=== PATIENT | male | born 1975 | race Hispanic/Latino ===

== ENCOUNTER 2016-05-16 17:48 | Emergency (ER) | payer OTHER ==
[2016-05-16 18:05] VITALS: BP 131/77; PULSE 90; RESP 16; TEMP 98.2; O2SAT 96
--- NOTE | 2016-05-16 18:54 | C.PDOC ---
History Of Present Illness Patient presents to the ED with complaints of occasional bright red blood per rectum with hard bowl movements for the last three weeks. Patient denies a history of hemorrhoids. Patient was in-patient from 05/09/16-05/13/16 for heroin detox and had no complaints at that time. Claims to be heroine free since discharge and living @ a [facility]. Time Seen by Provider: 05/16/16 18:40 Chief Complaint (Nursing): GI Problem History Per: Patient History/Exam Limitations: no limitations Onset/Duration Of Symptoms: Days Current Symptoms Are (Timing): Still Present Past Medical History Reviewed: Historical Data, Nursing Documentation, Vital Signs Vital Signs: Last Vital Signs Temp 98.2 F 05/16/16 18:00 Pulse 90 05/16/16 18:00 Resp 16 05/16/16 18:00 BP 131/77 05/16/16 18:00 Pulse Ox 96 05/16/16 21:11 - Medical History PMH: Depression, Hepatitis (hep c) - [facility] Procedures DETOXIFICATION SERVICES FOR SUBSTANCE ABUSE TREATMENT (07/05/15) GROUP COMPTOMETER OPERATOR FOR SUBSTANCE ABUSE TREATMENT, PSYCHOEDUCATION (07/05/15) GROUP COMPTOMETER OPERATOR FOR SUBSTANCE ABUSE, COGNITIVE BEHAVIORAL (05/09/16) INDIV COMPTOMETER OPERATOR FOR SUBSTANCE ABUSE, COGNITIVE BEHAVIORAL (05/09/16) INDIVIDUAL PSYCHOTHERAPY, SUPPORTIVE (05/09/16) Family History: States: Unknown Family Hx - Social History Hx Tobacco Use: No Hx Alcohol Use: Yes Hx Substance Use: No - Immunization History Hx Tetanus Toxoid Vaccination: No Hx Influenza Vaccination: No Hx Pneumococcal Vaccination: No Review Of Systems Constitutional: Negative for: Fever, Chills Gastrointestinal: Positive for: Rectal Pain. Negative for: Nausea, Vomiting Physical Exam - Physical Exam Appears: Non-toxic Skin: Warm, Dry Rectal: Heme Negative (guaiac negative), Hemorrhoids (non-bleeding hemorrhoids at 12 o'clock position) Extremity: Normal ROM, No Tenderness Neurological/Psych: Oriented x3 ED Course And Treatment O2 Sat by Pulse Oximetry: 96 Medical Decision Making Medical Decision Making: rectal exam with enlarged hemorroid @ 12 o'clock position, guaiac neg. occasional BRBPR a few drops w firm BM's most c/w ext hemorroids OK to f/u as opt for Colonscopy through our Clinic as needed. Disposition Doctor Will See Patient In The: Office Counseled Patient/Family Regarding: Studies Performed, Diagnosis - Disposition Referrals: [facility] [Outside] [facility] [Outside] Disposition: HOME/ ROUTINE Disposition Time: 18:53 Condition: GOOD Additional Instructions: follow-up in our outpatient Clinic to consider referral for Colonscopy. Instructions: Hemorrhoids (ED) - Clinical Impression Clinical Impression: Hemorrhoids
== END 2016-05-16 19:15 | disposition home or self-care (01) ==
LOC: C.ER 17:48
DX: K64.4 Residual hemorrhoidal skin tags (principal)

== ENCOUNTER 2016-11-16 11:58 | Inpatient (IN) | payer MEDICAID, OTHER ==
[2016-11-16 12:47] LABS: EOS # 0.2 K/uL (0.0-0.7); LYMPH # 1.6 K/uL (1.0-4.3); MEAN CELL VOLUME 94.3 fL (80.0-94.0); MONO # 0.5 K/uL (0.0-0.8); NRBC % 0.2 % (0.0-2.0)
[2016-11-16 12:54] LABS: BASO % 0.7 % (0.0-2.0); EOS % 3.4 % (0.0-4.0); HEMATOCRIT 45.7 % (35.0-51.0); LYMPH % 31.8 % (20.0-40.0); MEAN CORPUSCULAR HEMOGLOBIN 32.7 pg (27.0-31.0); MEAN CORPUSCULAR HGB CONC 34.7 g/dL (33.0-37.0); MEAN PLATELET VOLUME 9.8 fL (7.2-11.7); MONO % 9.3 % (0.0-10.0)
[2016-11-16 13:04] LABS: ALB/GLOB RATIO 1.3 (1.0-2.1); ALCOHOL SERUM < 10 mg/dl (0-10); ALKALINE PHOSPHATASE 93 U/L (38-126); ALT/SGPT 216 U/L (21-72); AST/SGOT 198 U/L (17-59); BLOOD UREA NITROGEN 8 mg/dL (9-20); CALCIUM 9.3 mg/dl (8.6-10.4); CARBON DIOXIDE 25 mmol/L (22-30); CHLORIDE 99 mmol/L (98-107); GFR AFRICAN-AMERICAN > 60; GLUCOSE,RANDOM 87 mg/dL (75-110); POTASSIUM 4.2 mmol/L (3.6-5.2); SODIUM 139 mmol/L (132-148); TOTAL PROTEIN 7.3 g/dL (6.3-8.3)
[2016-11-16 13:33] LABS: RBC URINE < 1 /hpf (0-3); URINE BILIRUBIN NEGATIVE (NEGATIVE); URINE BLOOD NEGATIVE (NEGATIVE); URINE COLOR Yellow (YELLOW); URINE GLUCOSE (UA) NORMAL (Normal); URINE KETONE NEGATIVE (NEGATIVE); URINE LEUKOCYTE ESTERASE NEG Leu/uL (Negative); URINE PROTEIN NEGATIVE (NEGATIVE); URINE UROBILINOGEN NORMAL mg/dL (0.2-1.0); WBC URINE < 1 /hpf (0-5)
--- NOTE | 2016-11-16 13:59 | C.PDOC ---
History Of Present Illness 41 y/o presents to ED with complaints of feeling depressed and wants to "jump off bridge". Patient denies HI and has no other complaints at this time. Time Seen by Provider: 11/16/16 13:05 Chief Complaint (Nursing): Psychiatric Evaluation History Per: Patient History/Exam Limitations: no limitations Onset/Duration Of Symptoms: Days Current Symptoms Are (Timing): Still Present Suicide/Self Injury Attempted (Context): None Modifying Factor(s): None Associated Symptoms: Depression, Suicidal Thoughts Past Medical History Reviewed: Historical Data, Nursing Documentation, Vital Signs Vital Signs: Last Vital Signs Temp 98.1 F 11/16/16 14:54 Pulse 64 11/16/16 14:54 Resp 17 11/16/16 15:38 BP 104/70 11/16/16 14:54 Pulse Ox 96 11/16/16 14:54 - Medical History PMH: Depression Surgical History: No Surg Hx - [facility] Procedures DETOXIFICATION SERVICES FOR SUBSTANCE ABUSE TREATMENT (07/05/15) GROUP TIRE SERVICE TECHNICIAN FOR SUBSTANCE ABUSE TREATMENT, PSYCHOEDUCATION (07/05/15) GROUP TIRE SERVICE TECHNICIAN FOR SUBSTANCE ABUSE, COGNITIVE BEHAVIORAL (05/09/16) INDIV TIRE SERVICE TECHNICIAN FOR SUBSTANCE ABUSE, COGNITIVE BEHAVIORAL (05/09/16) INDIVIDUAL PSYCHOTHERAPY, SUPPORTIVE (05/09/16) Family History: States: No Known Family Hx - Social History Hx Tobacco Use: No Hx Alcohol Use: Yes Hx Substance Use: Yes - Immunization History Hx Tetanus Toxoid Vaccination: No Hx Influenza Vaccination: No Hx Pneumococcal Vaccination: No Review Of Systems Except As Marked, All Systems Reviewed And Found Negative. Constitutional: Negative for: Fever, Chills Cardiovascular: Negative for: Chest Pain Respiratory: Negative for: Shortness of Breath Gastrointestinal: Negative for: Nausea, Vomiting Neurological: Negative for: Weakness, Numbness Psych: Positive for: Depression, Suicidal ideation Physical Exam - Physical Exam Appears: Non-toxic, No Acute Distress, Other (Flat affect) Skin: Normal Color, Warm, Dry, No Rash Head: Atraumatic Eye(s): bilateral: Normal Inspection Oral Mucosa: Moist Neck: Normal ROM, Supple Chest: Symmetrical Cardiovascular: Rhythm Regular, No Murmur Respiratory: Normal Breath Sounds, No Rales, No Rhonchi, No Wheezing Gastrointestinal/Abdominal: Soft, No Tenderness, No Guarding, No Rebound Neurological/Psych: Oriented x3, Normal Speech, Normal Motor, Normal Sensation ED Course And Treatment - Laboratory Results Result Diagrams: 11/16/16 12:41 11/16/16 12:41 Lab Interpretation: Abnormal (+ opiates, cannabanoids) O2 Sat by Pulse Oximetry: 97 (RA) Pulse Ox Interpretation: Normal Reevaluation Time: 16:00 Reassessment Condition: Improved - Physician Consult Information Outcome Of Conversation: 1600: d/w Crisis, ok to 5E Medical Decision Making Medical Decision Making: depression Disposition Doctor Will See Patient In The: Hospital Counseled Patient/Family Regarding: Studies Performed, Diagnosis - Disposition Disposition: HOSPITALIZED Disposition Time: 16:00 Condition: GOOD - Clinical Impression Clinical Impression: Depression - Scribe Statement The provider has reviewed the documentation as recorded by the Justin Alcazar All medical record entries made by the Justin were at my direction and personally dictated by me. I have reviewed the chart and agree that the record accurately reflects my personal performance of the history, physical exam, medical decision making, and the department course for this patient. I have also personally directed, reviewed, and agree with the discharge instructions and disposition.
--- NOTE | 2016-11-16 15:27 | PCM.BM ---
<Melina Miller - Last Filed: 11/16/16 15:25> Treatment Plan Problems - Problems identified on initial assessmt Depression Date Initiated: 11/16/16 Time Initiated: 15:25 Assessment reference: NA Status: Active Substance Abuse Date Initiated: 11/16/16 Time Initiated: 15:25 Assessment reference: NA Status: Active Treatment assets and liabiliti Patient Assests: adapts well, cooperative, ADL independent, negotiates basic needs, cognitively intact Patient Liabilities: live alone (Homeless), financial problems (Not working), substance abuse (Opiates, THC) - Milieu Protocol Maintain good personal hygiene: daily Encourage regular showers, daily Remind patient to perform daily oral care, other Assist patient to perform ADL's (Self) Conduct patient checks and document Observation sheet: Q15 minutes (Safety) Maintain personal safety: every shift Educate patient to report safety concerns to staff, every shift Monitor environment for contraband/sharps Medication safety: Monitor for expected outcome, potential side effects: every shift, Assess barriers to learning: every shift, Assess readiness for medication education: every shift <Jacqueline Williamson - Last Filed: 11/18/16 11:33> - Diagnosis (1) Depression Status: Acute Interventions: 11/18/16 11:33 * Assess/adjust medications daily and /or as needed * See patient on an individual basis 7x/week to assess level of depressive behaviors and stability * Discuss risks, benefits, side effects and alternatives of medications * (2) Opiate dependence, continuous Status: Acute Interventions: 11/18/16 11:33 * Assess 7x/week regarding severity of withdrawal * Educate regarding risks, benefits, side effects and alternatives of medications * Use Motivational Interviewing for abstinence * Use CBT for relapse prevention * Medication management for withdrawal symptoms * Encourage medication assisted treatment * <Mayuri Rajput - Last Filed: 11/18/16 11:37> Family Contact Family involvement: Famliy/SO not involved - Goals for Treatment Patient goals for treatment: "I need a job." Discharge/Continuing Care - Education Needs Education Needs: Patient Medication, Patient Coping Skills, Patient Placement options, Patient Community resources - Discharge Discharge Criteria: Tolerates medication w/o severe side effects, No longer exhibiting s/s of withdrawal Discharge to:: Halfway - Treatment Team Participation Discussed with Family/SO: No Was Patient/Family/SO present at Treatment Team Meeting: Yes
--- NOTE | 2016-11-17 09:43 | PCM.PSYCH ---
Initial Psychiatric Evaluation - Initial Psychiatric Evaluation Type of Admission: Voluntary Legal Status: Capacity Chief Complaint (in patient's own words): "I don't feel good." History of Present Illness and Precipitating Events: Pt. is seen, chart reviewed, case discussed with staff. Pt. is a 41 y/o male who presented to ED with complains of feeling depressed and wanting to "jump off a bridge." Pt. is known to us from previous admission in April for depression and polysubstance use. Pt. also has history of suicide attempt in March, where he tried to hang himself. Pt. states that he is "down all the time" and feels extremely depressed. Pt. also reports to drinking 1.5 pints of liquor daily, with maximum dose of 2 pints/day. His last drink was 2 days ago. Pt. also reports to using 3 Xanax pills daily for the past year. His last use was last week. Pt. also claims of using 10 bags heroin IV daily. He started using heroin at age of 16. He admits to using Suboxone from the street but never used methadone. His last use was 2 days ago. Pt. currently reports withdrawal sxs--nausea, hot/cold sensation, and inability to eat. Pt. denies seizures or DTs. Pt. also smokes 1 pack of cigarettes daily. Pt. reports to going to [facility] for 4 months after discharge from [facility]. That was his longest period of sobriety. After he got his own apartment , he claims that is when he started feeling depressed and had SI. Pt. denies auditory and visual hallucinations. Pt. denies homicidal ideation, but admits to having suicidal ideation whenever he drinks. Pt. says he feels hopeless and helpless. Pt. claims he has racing thoughts where is brain "cannot calm down," and that is when he abuses Xanax. Pt. currently feels less energetic and the anxiety causes him to sleep on and off through the night. MedHx: Hep. C Fam Psych Hx: brother and sister are heroin and alcohol addicts; brother on overdose of heroin; detox 1-2x, rehab 2x, [facility] Social Hx: single; 2 children (4, 7 y/o); unemployed; homeless (lived with father before) After care discussed. His plan after discharge is to find a new job and apartment. Current Medications: Active Medications Generic Name Dose Route Start Last Admin Trade Name Freq PRN Reason Stop Dose Admin Acetaminophen 650 mg 11/16/16 15:49 Tylenol 325mg Tab PO Q4H PRN Fever greater than 101 F Clonidine HCl 0.1 mg 11/16/16 15:49 11/17/16 08:49 Catapres PO 0.1 mg Q8 PRN Administration COWS Score More or Equal to 5 Diphenhydramine HCl 50 mg 11/16/16 15:50 Benadryl PO Q6 PRN Extra Pyramidal Symptoms Hydroxyzine HCl 25 mg 11/16/16 15:50 Atarax PO Q6 PRN Agitation Loperamide HCl 2 mg 11/16/16 15:49 Imodium PO Q8 PRN Diarrhea Methadone HCl 15 mg 11/17/16 09:30 Methadone PO 11/21/16 09:29 Q24H RICH Taper Ondansetron HCl 4 mg 11/16/16 15:49 Zofran Tab PO Q8 PRN Nausea/Vomiting Paroxetine HCl 10 mg 11/17/16 10:00 Paxil PO QAM RICH Pneumococcal Polyvalent Vaccine 0.5 ml 11/19/16 10:00 Pneumovax 23 Vaccine IM 11/19/16 10:01 .ONCE ONE Promethazine HCl 25 mg 11/16/16 15:49 Phenergan Inj IM QID PRN Nausea/Vomiting, Unable PO Trazodone HCl 50 mg 11/16/16 21:35 Desyrel PO HS PRN Insomnia Past Psychiatric History - Past Psychiatric History Previous Treatment History: Inpatient Pertinent Medical Hx (Current Medical&Sleep Prob, Allergies): Allergies Allergy/AdvReac Type Severity Reaction Status Date / Time No Known Allergies Allergy Verified 11/16/16 12:17 No Known Home Med 05/16/16 Review of Systems - Review of Systems All systems: reviewed and no additional remarkable complaints except - Neurological Neurological: UNREMARKABLE - Psychiatric Psychiatric: Anxiety, Depression, Hopelessness, Suicidal Ideation. absent: Homicidal Ideation, Visual Hallucinations Mental Status Examination - Personal Presentation Personal Presentation: Looks stated age - Affect Affect: Constricted, Depressed - Motor Activity Motor Activity: Calm - Reliability in Providing Information Reliability in Providing Information: Good - Speech Speech: Organized - Mood Mood: Depressed, Anxious - Formal Thought Process Formal Thought Process: No Impairment - Obsessions/Compulsions Obsessions: No Compulsions: No - Cognitive Functions Orientation: Person, Place, Situation, Time Sensorium: Alert Attention/Concentration: Attentive Abstract Thinking: [place] Estimate of Intelligence: Below average Judgement: Imparied, as evidence by: Poor judgement, Imparied, as evidence by: Lack of insight into illness Memory: Recent intact, as evidence by: Ability to recall events of the day - Risk Risk: Suicidal, Withdrawal, Diminished functioning - Limitations Limitations: Other (homeless) DSM 5 DX - DSM 5 DSM 5 Diagnosis: Major depressive disorder recurrent severe without psychotic features Opioid use d/o-severe Opioid withdrawal Sedative hypnotic and anxiolytic use d/o-moderate Sedative hypnotic and anxiolytic withdrawal Alcohol use disorder severe Alcohol withdrawal - Recommended/Plan of Treatment Treatment Recommendations and Plan of Treatment: -Major depressive disorder recurrent severe without psychotic features Paxil 10 mg PO QAM Trazodone 50 mg pO QHS Groups and individual treatment CBT -Opioid use d/o-severe -Opioid withdrawal CBT for relapse prevention Psychoeducation Supportive therapy, individual therapy Use [place] for abstinence Methadone taper Refer to after care. -Sedative hypnotic and anxiolytic use d/o-moderate -Sedative hypnotic and anxiolytic withdrawal CBT for relapse prevention Psychoeducation Supportive therapy, individual therapy Use [place] for abstinence Ativan prn (High LFTs) -Alcohol use disorder severe -Alcohol withdrawal CBT for relapse prevention Psychoeducation - Smoking Cessation Smoking Cessation Initiated: Yes
--- NOTE | 2016-11-18 11:34 | PCM.PYCHPN ---
Psychiatric Progress Note - Psychiatric Progress Note Patient seen today, length of contact: 15 min. Patient Chief Complaint: "I feel little better than yesterday." Problems Identified/Issues Discussed: Pt. is seen, chart reviewed, case discussed with staff. Pt. reports he still has some withdrawal sxs.--runny nose, sneezing, body aches , and chills. Pt. slept well though the night. Pt. claims he feels depressed because he "doesn't know what to do with his life." Pt. says he is unable to get a job b/c he has a criminal record for armed robbery and served in [employer] from [id number]. He claims the thought of not having anything to do after discharge makes him anxious and causes him to have "panic attacks" and racing thoughts. Pt. denies suicidal and homicidal ideation and denies visual and auditory hallucinations at this time. No new symptoms reported, improving slowly and needs more time. No SEs from medications, risks discussed. After care discussed. His plan is to look for a job and apartment as soon as possible. Medication Change: Yes (methdone taper) Medical Record Reviewed: Yes Mental Status Examination - Cognitive Function Orientation: Person, Place, Situation, Time Memory: Intact Attention: WNL Concentration: Poor Association: WNL Fund of Knowledge: Poor - Mood Mood: Depressed, Anxious - Affect Affect: Constricted, Depressed - Speech Speech: Appropriate - Formal Thought Process Formal Thought Process: No Impairment - Suicidal Ideation Suicidal Ideation: No - Homicidal Ideation Homicidal Ideation: No Goal/Treatment Plan - Goal/Treatment Plan Need for Continued Stay: Remain at risks for inpatient hospitalization, Severe depression anxiety, Discharge may exacerbated symptoms Progress Toward Problem(s) and Goals/Treatment Plan: -Major depressive disorder recurrent severe without psychotic features Paxil 10 mg PO QAM Trazodone 50 mg pO QHS Groups and individual treatment CBT -Opioid use d/o-severe -Opioid withdrawal CBT for relapse prevention Psychoeducation Supportive therapy, individual therapy Use [place] for abstinence Methadone taper Refer to after care. -Sedative hypnotic and anxiolytic use d/o-moderate -Sedative hypnotic and anxiolytic withdrawal CBT for relapse prevention Psychoeducation Supportive therapy, individual therapy Use [place] for abstinence Ativan prn (High LFTs) -Alcohol use disorder severe -Alcohol withdrawal CBT for relapse prevention Psychoeducation - Smoking Cessation Smoking Cessation Initiated: Yes
[2016-11-19] MEDS ORDERED: Pneumococcal 23-Valent Vaccine IM ONE (10:00)
--- NOTE | 2016-11-19 10:08 | PCM.PYCHPN ---
Psychiatric Progress Note - Psychiatric Progress Note Patient seen today, length of contact: 15 min. Patient Chief Complaint: "I'm having body aches." Problems Identified/Issues Discussed: Pt. is seen, chart reviewed, case discussed with staff. Pt. still reports he has bad withdrawal symptoms including bone pain, muscle pain, stomach pain, and nausea at night. He reports he is "depressed," stating that "nothing in life is working out, and it is easier in [facility]." The main stressor for his depressed mood seems to be his inability to find a job due to his criminal record. He claims his sleep has been on and off b/c of his anxiety. Pt. also requests to be taken off of methadone b/c he doesn't want to be "dependent" on it. Symptoms are improving, but needs more time to stabilize. No SEs from medications, risks discussed. After care discussed. His plan is to go to [facility] and also look into the Reintegration Program. Medication Change: Yes (increase Paxil, methdone taper) Medical Record Reviewed: Yes Mental Status Examination - Cognitive Function Orientation: Person, Place, Situation, Time Memory: Intact Attention: WNL Concentration: Poor Association: WNL Fund of Knowledge: Poor - Mood Mood: Depressed, Anxious - Affect Affect: Constricted, Depressed - Speech Speech: Appropriate - Formal Thought Process Formal Thought Process: No Impairment - Suicidal Ideation Suicidal Ideation: No - Homicidal Ideation Homicidal Ideation: No Goal/Treatment Plan - Goal/Treatment Plan Need for Continued Stay: Remain at risks for inpatient hospitalization, Severe depression anxiety, Discharge may exacerbated symptoms Progress Toward Problem(s) and Goals/Treatment Plan: -Major depressive disorder recurrent severe without psychotic features Paxil 20 mg PO QAM Trazodone 50 mg pO QHS Groups and individual treatment CBT -Opioid use d/o-severe -Opioid withdrawal CBT for relapse prevention Psychoeducation Supportive therapy, individual therapy Use [place] for abstinence Methadone taper Refer to after care. -Sedative hypnotic and anxiolytic use d/o-moderate -Sedative hypnotic and anxiolytic withdrawal CBT for relapse prevention Psychoeducation Supportive therapy, individual therapy Use [place] for abstinence Ativan prn (High LFTs) -Alcohol use disorder severe -Alcohol withdrawal CBT for relapse prevention Psychoeducation Estimated Date of D/C: 11/23/16 - Smoking Cessation Smoking Cessation Initiated: No
[2016-11-20 07:39] VITALS: O2SAT 19
--- NOTE | 2016-11-20 10:54 | PCM.PYCHPN ---
Psychiatric Progress Note - Psychiatric Progress Note Patient seen today, length of contact: 15 min. Patient Chief Complaint: "I'm having body aches." Problems Identified/Issues Discussed: Pt. is seen, chart reviewed, case discussed with staff. Pt. reports some improvement in the withdrawal symptoms but still reports bone pain, muscle pain, and abdominal cramps. He reports some improvement in hos mood and reports medications are working. Symptoms are improving, but needs more time to stabilize. No SEs from medications, risks discussed. After care discussed. His plan is to go to [facility] and also look into the Reintegration Program. Medication Change: Yes (methdone taper) Medical Record Reviewed: Yes Mental Status Examination - Cognitive Function Orientation: Person, Place, Situation, Time Memory: Intact Attention: WNL Concentration: Poor Association: WNL Fund of Knowledge: Poor - Mood Mood: Depressed, Anxious - Affect Affect: Constricted, Depressed - Speech Speech: Appropriate - Formal Thought Process Formal Thought Process: No Impairment - Suicidal Ideation Suicidal Ideation: No - Homicidal Ideation Homicidal Ideation: No Goal/Treatment Plan - Goal/Treatment Plan Need for Continued Stay: Remain at risks for inpatient hospitalization, Severe depression anxiety, Discharge may exacerbated symptoms Progress Toward Problem(s) and Goals/Treatment Plan: -Major depressive disorder recurrent severe without psychotic features Paxil 20 mg PO QAM Trazodone 50 mg pO QHS Groups and individual treatment CBT -Opioid use d/o-severe -Opioid withdrawal CBT for relapse prevention Psychoeducation Supportive therapy, individual therapy Use [place] for abstinence Methadone taper Refer to after care. -Sedative hypnotic and anxiolytic use d/o-moderate -Sedative hypnotic and anxiolytic withdrawal CBT for relapse prevention Psychoeducation Supportive therapy, individual therapy Use [place] for abstinence Ativan prn (High LFTs) -Alcohol use disorder severe -Alcohol withdrawal CBT for relapse prevention Psychoeducation Estimated Date of D/C: 11/23/16 - Smoking Cessation Smoking Cessation Initiated: Yes
[2016-11-21 18:40] VITALS: RESP 17
--- NOTE | 2016-11-21 18:48 | PCM.PYCHPN ---
Psychiatric Progress Note - Psychiatric Progress Note Patient seen today, length of contact: 15 min. Patient Chief Complaint: I still feel withdrawal symptoms and I need more methadone. Problems Identified/Issues Discussed: Patient seen. Chart reviewed. Case discussed with the staff. Issues related to illness and treatment were discussed with the patient. Reported compliant with treatment with no adverse affects. Tolerating treatment very well. Patient reported he still feels withdrawal symptoms including body aches and anxiety and requesting for more methadone. Education provided about medication. Patient also requesting for opiate pain medication. Again education provided about his treatment and offered him Motrin. At the time of evaluation, patient was awake alert oriented 3, had no delusions , no auditory or visual hallucinations, no suicidal ideations or homicidal ideations. Medical Problems: Hepatitis C Diagnostic Results: Reviewed DSM 5 Symptoms Update: Improving with treatment Medication Change: No Medical Record Reviewed: Yes Mental Status Examination - Cognitive Function Orientation: Person, Place, Situation, Time Memory: Intact Attention: WNL Concentration: WNL Association: WNL Fund of Knowledge: [facility] Decription of patient's judgement and insights: Fair - Mood Mood: Anxious - Affect Affect: Other - Speech Speech: Appropriate - Formal Thought Process Formal Thought Process: No Impairment Psychotic Thoughts and Behaviors: None - Suicidal Ideation Suicidal Ideation: No - Homicidal Ideation Homicidal Ideation: No Goal/Treatment Plan - Goal/Treatment Plan Need for Continued Stay: Remain at risks for inpatient hospitalization, Discharge may exacerbated symptoms, Severe functional impairment Progress Toward Problem(s) and Goals/Treatment Plan: Patient education Supportive therapy Continue treatment as before Estimated Date of D/C: 11/23/16 - Smoking Cessation Smoking Cessation Initiated: Yes
[2016-11-22 09:15] VITALS: TEMP 97.5
--- NOTE | 2016-11-22 14:45 | PCM.PYCHPN ---
Psychiatric Progress Note - Psychiatric Progress Note Patient seen today, length of contact: 15 min. Patient Chief Complaint: I'm feeling much better today. I had good night sleep. Problems Identified/Issues Discussed: Patient seen. Chart reviewed. Case discussed with the staff. Issues related to illness and treatment were discussed with the patient. Reported compliant with treatment with no adverse affects. Tolerating treatment very well. Reported feeling much better with good night sleep. At the time of evaluation, patient was awake alert oriented 3, had no delusions , no auditory or visual hallucinations, no suicidal ideations or homicidal ideations. Medical Problems: Hepatitis C Diagnostic Results: Reviewed DSM 5 Symptoms Update: Improving with treatment Medication Change: No Medical Record Reviewed: Yes Mental Status Examination - Cognitive Function Orientation: Person, Place, Situation, Time Memory: Intact Attention: WNL Concentration: WNL Association: WN Fund of Knowledge: [facility] Decription of patient's judgement and insights: Fair - Mood Mood: Depressed (Much less than before) - Affect Affect: Depressed - Speech Speech: Appropriate - Formal Thought Process Formal Thought Process: No Impairment Psychotic Thoughts and Behaviors: None - Suicidal Ideation Suicidal Ideation: No - Homicidal Ideation Homicidal Ideation: No Goal/Treatment Plan - Goal/Treatment Plan Need for Continued Stay: Remain at risks for inpatient hospitalization, Discharge may exacerbated symptoms, Severe functional impairment Progress Toward Problem(s) and Goals/Treatment Plan: Patient education Supportive therapy Continue treatment as before We will go to [facility] for follow-up care after discharge from the hospital. Estimated Date of D/C: 11/23/16 - Smoking Cessation Smoking Cessation Initiated: Yes
[2016-11-22 16:48] VITALS: BP 100/57; PULSE 61
--- NOTE | 2016-11-23 09:45 | PCM.PYCHDC ---
Mental Status Examination - Mental Status Examination Orientation: Person Discharge Summary - Discharge Note Consultations:: List each consultation separately and include: 1. Reason for request. 2. Findings. 3. Follow-up Summary of Hospital Course include:: 1. Description of specific treatment plan utilized for patients during their course of treatmen. 2. Summarize the time- course for resolution of acute symptoms and/or regressed behaviors. 3. Describe issues identified and worked on during hospitalization. 4. Describe medication utilized. 5. Describe medical problems identified and treated. 6. Reassessment of suicide risk - Final Diagnosis (DSM 5) Condition upon Discharge: GOOD Disposition: HOME/ ROUTINE Prescriptions/Medication Reconciliation: Gabapentin [Neurontin] 300 mg PO TID #90 cap PARoxetine [Paxil] 20 mg PO QAM #30 tab traZODone [Desyrel] 50 mg PO HS PRN #30 tab PRN Reason: Insomnia
== END 2016-11-23 10:40 | disposition home or self-care (01) | DRG 430 ==
LOC: C.ER 11:58 → C.5E 14:51
PROVIDERS: ADMIT Psychiatry & Neurology Psychiatry; ATTEND Psychiatry & Neurology Psychiatry
PROC: GZ3ZZZZ Medication Management (ICD-10-PCS; principal; 2016-11-16)
PROC: HZ2ZZZZ Detoxification Services for Substance Abuse Treatment (ICD-10-PCS; 2016-11-16)
PROC: GZHZZZZ Group Psychotherapy (ICD-10-PCS; 2016-11-16)
PROC: GZ56ZZZ Individual Psychotherapy, Supportive (ICD-10-PCS; 2016-11-16)
PROC: HZ59ZZZ Individual Psychotherapy for Substance Abuse Treatment, Supportive (ICD-10-PCS; 2016-11-16)
PROC: HZ46ZZZ Group Counseling for Substance Abuse Treatment, Psychoeducation (ICD-10-PCS; 2016-11-16)
DX: F33.2 Major depressive disorder, recurrent severe without psychotic features (principal); R45.851 Suicidal ideations; F11.23 Opioid dependence with withdrawal; F10.239 Alcohol dependence with withdrawal, unspecified; F13.239 Sedative, hypnotic or anxiolytic dependence with withdrawal, unspecified; B18.2 Chronic viral hepatitis C; F17.210 Nicotine dependence, cigarettes, uncomplicated; F41.9 Anxiety disorder, unspecified; Z91.5 Personal history of self-harm

== ENCOUNTER 2016-12-07 06:13 | Emergency (ER) | payer MEDICAID ==
[2016-12-07 06:21] VITALS: BP 101/64; PULSE 76; RESP 18; TEMP 97.6; O2SAT 94
--- NOTE | 2016-12-07 06:35 | C.PDOC ---
History Of Present Illness 41 y/o male c/o feeling depressed and having social issues at home today. Patient claims to be homeless. Denies SI, HI, or somatic complaints. Time Seen by Provider: 12/07/16 06:26 Chief Complaint (Nursing): Psychiatric Evaluation History Per: Patient History/Exam Limitations: no limitations Onset/Duration Of Symptoms: Hrs Current Symptoms Are (Timing): Still Present Suicide/Self Injury Attempted (Context): None Severity: Mild Associated Symptoms: denies: Suicidal Thoughts, Suicidal Plan Recent travel outside of the [place]: No Additional History Per: Patient Past Medical History Reviewed: Historical Data, Nursing Documentation, Vital Signs Vital Signs: Last Vital Signs Temp 97.6 F 12/07/16 06:19 Pulse 76 12/07/16 06:19 Resp 18 12/07/16 06:19 BP 101/64 12/07/16 06:19 Pulse Ox 94 L 12/07/16 06:35 - Medical History PMH: Depression Denies: Diabetes, Hepatitis, HIV, HTN, Seizures, Sexually Transmitted Disease - [facility] Procedures DETOXIFICATION SERVICES FOR SUBSTANCE ABUSE TREATMENT (11/16/16) GROUP PARTS CHASER FOR SUBSTANCE ABUSE TREATMENT, PSYCHOEDUCATION (11/16/16) GROUP PARTS CHASER FOR SUBSTANCE ABUSE, COGNITIVE BEHAVIORAL (05/09/16) GROUP PSYCHOTHERAPY (11/16/16) INDIV PARTS CHASER FOR SUBSTANCE ABUSE, COGNITIVE BEHAVIORAL (05/09/16) INDIV PSYCHOTHERAPY FOR SUBSTANCE ABUSE TREATMENT, SUPPORT (11/16/16) INDIVIDUAL PSYCHOTHERAPY, SUPPORTIVE (11/16/16) MEDICATION MANAGEMENT (11/16/16) Family History: States: Unknown Family Hx - Social History Hx Tobacco Use: No Hx Alcohol Use: Yes Hx Substance Use: Yes - Immunization History Hx Tetanus Toxoid Vaccination: No Hx Influenza Vaccination: No Hx Pneumococcal Vaccination: No Review Of Systems Except As Marked, All Systems Reviewed And Found Negative. Psych: Negative for: Suicidal ideation, Other (Homicidal ideation) Physical Exam - Physical Exam Appears: Non-toxic, No Acute Distress, Other (Many tattoes) Skin: Warm, Dry Head: Atraumatic, Normacephalic Cardiovascular: Rhythm Regular Respiratory: Normal Breath Sounds, No Rales, No Rhonchi, No Wheezing Gastrointestinal/Abdominal: Soft, No Tenderness Neurological/Psych: Oriented x3 ED Course And Treatment O2 Sat by Pulse Oximetry: 94 (RA) Pulse Ox Interpretation: Normal Reevaluation Time: 07:00 Reassessment Condition: Unchanged (calm cooperative) Medical Decision Making Medical Decision Makin: depression, homeless, pending Crisis Eval signed over to Day [facility] Disposition - Disposition Disposition Time: 07:00 Condition: GOOD Forms: [facility] (Maltese) - Clinical Impression Clinical Impression: Depression - Scribe Statement The provider has reviewed the documentation as recorded by the Scribe Duncan gore All medical record entries made by the Scribe were at my direction and personally dictated by me. I have reviewed the chart and agree that the record accurately reflects my personal performance of the history, physical exam, medical decision making, and the department course for this patient. I have also personally directed, reviewed, and agree with the discharge instructions and disposition. Physician Patient Turnover Patient Signed Over To: Chantelle Snow Handoff Comments: please follow-up workup and dispo per Crisis Eval.
[2016-12-07 06:48] LABS: BASO % 0.5 % (0.0-2.0); EOS # 0.1 K/uL (0.0-0.7); EOS % 2.8 % (0.0-4.0); HEMATOCRIT 46.4 % (35.0-51.0); LYMPH # 1.2 K/uL (1.0-4.3); LYMPH % 25.9 % (20.0-40.0); MEAN CELL VOLUME 94.4 fL (80.0-94.0); MEAN CORPUSCULAR HEMOGLOBIN 32.7 pg (27.0-31.0); MEAN CORPUSCULAR HGB CONC 34.7 g/dL (33.0-37.0); MONO # 0.4 K/uL (0.0-0.8); MONO % 8.4 % (0.0-10.0); RED CELL DISTRIBUTION WIDTH 12.8 % (11.5-14.5); WHITE BLOOD COUNT 4.7 K/uL (4.8-10.8)
[2016-12-07 06:54] LABS: CHLORIDE 99 mmol/L (98-107)
[2016-12-07 06:55] LABS: POTASSIUM 4.3 mmol/L (3.6-5.2); SODIUM 137 mmol/L (132-148)
[2016-12-07 06:57] LABS: ALB/GLOB RATIO 1.3 (1.0-2.1); ALKALINE PHOSPHATASE 100 U/L (38-126); ALT/SGPT 265 U/L (21-72); AST/SGOT 196 U/L (17-59); BILIRUBIN,TOTAL 1.3 mg/dL (0.2-1.3); BLOOD UREA NITROGEN 10 mg/dL (9-20); CARBON DIOXIDE 27 mmol/L (22-30); GFR AFRICAN-AMERICAN > 60; GLUCOSE,RANDOM 119 mg/dL (75-110); RBC URINE < 1 /hpf (0-3); TOTAL PROTEIN 8.3 g/dL (6.3-8.3); URINE BILIRUBIN NEGATIVE (NEGATIVE); URINE BLOOD NEGATIVE (NEGATIVE); URINE COLOR Yellow (YELLOW); URINE GLUCOSE (UA) NORMAL (Normal); URINE KETONE NEGATIVE (NEGATIVE); URINE LEUKOCYTE ESTERASE NEG Leu/uL (Negative); URINE PROTEIN NEGATIVE (NEGATIVE); WBC URINE 1 /hpf (0-5)
[2016-12-07 06:58] LABS: ALCOHOL SERUM < 10 mg/dl (0-10); CALCIUM 9.7 mg/dl (8.6-10.4)
== END 2016-12-07 07:57 | disposition home or self-care (01) ==
LOC: C.ER 06:13
DX: F32.9 Major depressive disorder, single episode, unspecified (principal)

== ENCOUNTER 2017-03-04 11:25 | Emergency (ER) | payer MEDICAID, OTHER ==
[2017-03-04 11:25] VITALS: BMI 25.0
[2017-03-04 11:29] VITALS: BP 117/73; PULSE 77; RESP 16; TEMP 97.8; O2SAT 96
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
== END 2017-03-04 12:20 | disposition home or self-care (01) ==
LOC: C.ER 11:25
DX: S20.211A Contusion of right front wall of thorax, initial encounter (principal); V58.1XXA Passenger in pick-up truck or van injured in noncollision transport accident in nontraffic accident, initial encounter
CPT/HCPCS: 71101; 96372; 99283; J1885